=== PATIENT | male | born 1950 | race Caucasian/White ===

== ENCOUNTER 2020-09-22 10:21 | Inpatient (IN) | payer OTHER, SELFPAY ==
[~2020-09-22] VITALS: Ht 172.7 cm; Wt 93.0 kg
[2020-09-22 10:49] VITALS: BP_SYST 161
[2020-09-22] MEDS ORDERED: IPRATROPIUM BROM 0.5 MG/2.5 ML VIAL.NEB (ATROVENT) INH ONE (11:15)
[2020-09-22] MEDS ORDERED: LevALBUTEROL HCL 1.25 MG/0.5 ML *CONC.* VIAL.NEB (XOPENEX CONC.) INH ONE (11:15)
[2020-09-22 13:07] LABS: BASOPHILS % (AUTO) 0.4 % (0.0-2.0); EOSINOPHILS % (AUTO) 0.1 % (0.0-4.0); HEMATOCRIT 32.2 % (36-54); HEMOGLOBIN 10.3 g/dL (14.0-18.0); LYMPHOCYTES # (AUTO) 1.2 K/uL (1.0-5.5); LYMPHOCYTES % (AUTO) 16.8 % (20.5-51.5); MEAN CORPUSCULAR HEMOGLOBIN 24 pg (27-31); MEAN CORPUSCULAR HGB CONC 32 % (32-36); MEAN CORPUSCULAR VOLUME 74 fL (79.0-98.0); MONOCYTES # (AUTO) 0.7 K/uL (0.0-1.0); MONOCYTES % (AUTO) 10.1 % (1.7-9.3); NEUTROPHILS # (AUTO) 5.4 K/uL (1.8-7.7); NEUTROPHILS % (AUTO) 72.6 % (40.0-70.0); PLATELET COUNT (AUTO) 293 K/uL (130-430); RED BLOOD CELL COUNT(AUTO) 4.34 MIL/uL (4.2-6.2); RED CELL DISTRIBUTION WIDTH 17.7 % (9.0-15.0); WHITE BLOOD COUNT (AUTO) 7.4 K/uL (4.8-10.8)
[2020-09-22 13:12] LABS: ANION GAP 9 (5-15); CALCIUM 8.9 mg/dL (8.4-11.0); CHLORIDE 97 mmol/L (98-107); CREATININE 1.51 mg/dL (0.55-1.30); GLUCOSE 360 mg/dL (70-99); POTASSIUM 4.4 mmol/L (3.5-5.1); SODIUM SERUM 132 mmol/L (136-145); UREA NITROGEN, BLOOD 25 mg/dL (8-21)
[2020-09-22 13:23] LABS: ALANINE AMINOTRANSFERASE 439 U/L (12-78); LACTATE DEHYDROGENASE 662 U/L (85-227); TOTAL BILIRUBIN 0.7 mg/dL (0.0-1.0)
[2020-09-22 13:25] LABS: FIBRINOGEN 726 mg/dL (200-400)
[2020-09-22] MEDS ORDERED: AZITHROMYCIN 500 MG in NS 250 ML IV ONE (13:45)
[2020-09-22] MEDS ORDERED: ASPIRIN 81 MG TABLET(ECOTRIN) PO ONE (13:45)
[2020-09-22 14:04] LABS: C-REACTIVE PROTEIN QUANT 26.3 mg/dL (0-0.5)
[2020-09-22] MEDS ORDERED: LIP80 PO (14:18)
[2020-09-22] MEDS ORDERED: LOSA50TA3 PO (14:18)
[2020-09-22] MEDS ORDERED: METF1000 PO (14:18)
[2020-09-22] MEDS ORDERED: NOR10 PO (14:18)
[2020-09-22] MEDS ORDERED: CARV6.2554 PO (14:18)
[2020-09-22] MEDS ORDERED: ASPI-1393 PO (14:18)
[2020-09-22] MEDS ORDERED: GLIM4TAB PO (14:18)
[2020-09-22] MEDS ORDERED: CLOP75TA32 PO (14:18)
[2020-09-22 14:22] LABS: ASPARTATE AMINOTRANSFERASE 679 U/L (10-37)
[2020-09-22] MEDS ORDERED: INSULIN REGULAR, HUMAN 10 UNITS/0.1 ML INJ ONE (14:47)
[2020-09-22] MEDS ORDERED: DEXTROSE 50% JECT 50 ML DISP.SYRIN IVP PRN (15:00)
[2020-09-22] MEDS ORDERED: *HEPARIN PER PHARMACY XX ONE (15:00)
[2020-09-22] MEDS ORDERED: INSULIN REGULAR, HUMAN 100 UNITS/ML, 10 ML VIAL IVP ONE (15:00)
[2020-09-22] MEDS ORDERED: IPRATROPIUM BROM 0.5 MG/2.5 ML VIAL.NEB (ATROVENT) INH PRN (15:00)
[2020-09-22 15:13] VITALS: BP_SYST 167
[2020-09-22] MEDS ORDERED: HEPARIN SODIUM,PORCINE 3000 UNITS/0.6 ML BOLUS IVP PRN (15:30)
[2020-09-22] MEDS ORDERED: HEPARIN SODIUM,PORCINE 2000 UNITS/0.4 ML BOLUS IVP PRN (15:30)
[2020-09-22] MEDS ORDERED: HEPARIN SODIUM,PORCINE 5,000 UNITS/ML VIAL IVP ONE (15:30)
[2020-09-22] MEDS ORDERED: ALBUTEROL MDI INHALATION 8 GM INH INH PRN (15:30)
[2020-09-22 16:07] VITALS: BP_SYST 144
[2020-09-22] MEDS: DEXAMETHASONE SOD PHOSPHATE 10 MG/ML VIAL IVP SCH (17:14)
[2020-09-22] MEDS: cefTRIAXone 1 GM in D5W 50 ML IV SCH (17:14)
[2020-09-22] MEDS: INSULIN REGULAR, HUMAN 100 UNITS/ML, 10 ML VIAL (humuLIN R) SUBCUT PRN (18:52)
[2020-09-22] MEDS: HEPARIN 25,000 UNITS in 250 ML PREMIX IV PRN (19:50)
[2020-09-22] MEDS: CARVEDILOL 6.25 MG TABLET (COREG) PO SCH (21:50)
[2020-09-23] VITALS: BP_SYST 147
[2020-09-23] MEDS: INSULIN REGULAR, HUMAN 100 UNITS/ML, 10 ML VIAL (humuLIN R) SUBCUT PRN ×5 (00:20→23:32)
[2020-09-23 01:04] LABS: BILIRUBIN,URINE NEGATIVE (NEGATIVE); BLOOD, URINE 3+ (NEGATIVE); CLARITY/URINE CLEAR (CLEAR); COLOR,URINE YELLOW (YELLOW); GLUCOSE,URINE 2+ (NEGATIVE); KETONES,URINE NEGATIVE (NEGATIVE); LEUKOCYTE ESTERASE ,URINE NEGATIVE (NEGATIVE); NITRITE, URINE NEGATIVE (NEGATIVE); PH,URINE 5.5 (5.0-8.0); PROTEIN URINE 3+ (NEGATIVE)
[2020-09-23 01:18] LABS: BACTERIA,URINE MANY /HPF (None Seen); RBC,URINE 20-50 /HPF (0-3); YEAST,URINE Moderate /HPF (None Seen)
[2020-09-23 08:50] VITALS: BP_SYST 146
[2020-09-23] MEDS ORDERED: ATORVASTATIN 20 MG TABLET PO SCH (09:00)
[2020-09-23] MEDS ORDERED: CLOPIDOGREL BISULFATE 75 MG TABLET PO SCH (09:00)
[2020-09-23 09:49] LABS: BASOPHILS % (AUTO) 0.2 % (0.0-2.0); HEMOGLOBIN 10.1 g/dL (14.0-18.0); LYMPHOCYTES # (AUTO) 0.9 K/uL (1.0-5.5); LYMPHOCYTES % (AUTO) 11.9 % (20.5-51.5); MEAN CORPUSCULAR HEMOGLOBIN 24 pg (27-31); MEAN CORPUSCULAR HGB CONC 32 % (32-36); MEAN CORPUSCULAR VOLUME 75 fL (79.0-98.0); MONOCYTES # (AUTO) 0.5 K/uL (0.0-1.0); MONOCYTES % (AUTO) 7.5 % (1.7-9.3); NEUTROPHILS # (AUTO) 5.8 K/uL (1.8-7.7); NEUTROPHILS % (AUTO) 80.4 % (40.0-70.0); PLATELET COUNT (AUTO) 259 K/uL (130-430); RED BLOOD CELL COUNT(AUTO) 4.28 MIL/uL (4.2-6.2); RED CELL DISTRIBUTION WIDTH 17.9 % (9.0-15.0); WHITE BLOOD COUNT (AUTO) 7.2 K/uL (4.8-10.8)
[2020-09-23 09:53] LABS: ALANINE AMINOTRANSFERASE 336 U/L (12-78); ALBUMIN 2.7 g/dL (3.4-4.8); ANION GAP 14 (5-15); CALCIUM 8.8 mg/dL (8.4-11.0); CHLORIDE 101 mmol/L (98-107); CREATININE 1.55 mg/dL (0.55-1.30); GLUCOSE 315 mg/dL (70-99); POTASSIUM 4.3 mmol/L (3.5-5.1); SODIUM SERUM 138 mmol/L (136-145); TOTAL BILIRUBIN 0.7 mg/dL (0.0-1.0); UREA NITROGEN, BLOOD 27 mg/dL (8-21)
[2020-09-23 10:19] LABS: ASPARTATE AMINOTRANSFERASE 246 U/L (10-37)
[2020-09-23] MEDS: AZITHROMYCIN 500 MG in NS 250 ML IV SCH (10:51)
[2020-09-23] MEDS: CARVEDILOL 6.25 MG TABLET (COREG) PO SCH ×2 (10:51→23:20)
[2020-09-23] MEDS: amLODIPine BESYLATE 10 MG TABLET PO SCH (10:52)
[2020-09-23] MEDS: ASPIRIN 81 MG TABLET(ECOTRIN) PO SCH (10:52)
[2020-09-23] MEDS: HEPARIN 25,000 UNITS in 250 ML PREMIX IV PRN ×2 (10:55→18:59)
[2020-09-23] MEDS: ALBUTEROL MDI INHALATION 8 GM INH INH SCH ×2 (12:30→18:55)
[2020-09-23] MEDS: IPRATROPIUM BROM 0.5 MG/2.5 ML VIAL.NEB (ATROVENT) INH SCH (12:44)
[2020-09-23] MEDS: cefTRIAXone 1 GM in D5W 50 ML IV SCH (15:44)
[2020-09-23] MEDS: DEXAMETHASONE SOD PHOSPHATE 10 MG/ML VIAL IVP SCH (15:44)
[2020-09-23 23:02] VITALS: BP_SYST 161
[2020-09-24] VITALS (7 sets, daily range): BP systolic 136–167
[2020-09-24] MEDS: INSULIN REGULAR, HUMAN 100 UNITS/ML, 10 ML VIAL (humuLIN R) SUBCUT PRN ×4 (06:08→23:40)
[2020-09-24] MEDS: IPRATROPIUM BROM 0.5 MG/2.5 ML VIAL.NEB (ATROVENT) INH SCH ×3 (07:00→19:25)
[2020-09-24 07:06] LABS: BASOPHILS % (AUTO) 0.3 % (0.0-2.0); HEMATOCRIT 30.8 % (36-54); HEMOGLOBIN 9.7 g/dL (14.0-18.0); LYMPHOCYTES # (AUTO) 0.7 K/uL (1.0-5.5); MEAN CORPUSCULAR HEMOGLOBIN 23 pg (27-31); MEAN CORPUSCULAR HGB CONC 31 % (32-36); MEAN CORPUSCULAR VOLUME 75 fL (79.0-98.0); MONOCYTES # (AUTO) 0.6 K/uL (0.0-1.0); MONOCYTES % (AUTO) 7.9 % (1.7-9.3); NEUTROPHILS # (AUTO) 6.1 K/uL (1.8-7.7); NEUTROPHILS % (AUTO) 81.8 % (40.0-70.0); PLATELET COUNT (AUTO) 236 K/uL (130-430); RED BLOOD CELL COUNT(AUTO) 4.13 MIL/uL (4.2-6.2); RED CELL DISTRIBUTION WIDTH 17.9 % (9.0-15.0); WHITE BLOOD COUNT (AUTO) 7.5 K/uL (4.8-10.8)
[2020-09-24] MEDS: ALBUTEROL MDI INHALATION 8 GM INH INH SCH ×3 (07:34→20:28)
[2020-09-24 08:00] LABS: ALANINE AMINOTRANSFERASE 335 U/L (12-78); ALBUMIN 2.6 g/dL (3.4-4.8); ANION GAP 8 (5-15); ASPARTATE AMINOTRANSFERASE 192 U/L (10-37); CALCIUM 8.5 mg/dL (8.4-11.0); CHLORIDE 100 mmol/L (98-107); GLUCOSE 344 mg/dL (70-99); POTASSIUM 3.9 mmol/L (3.5-5.1); SODIUM SERUM 136 mmol/L (136-145); TOTAL BILIRUBIN 0.5 mg/dL (0.0-1.0); UREA NITROGEN, BLOOD 30 mg/dL (8-21)
[2020-09-24] MEDS: CARVEDILOL 6.25 MG TABLET (COREG) PO SCH ×2 (09:12→22:00)
[2020-09-24] MEDS: ASPIRIN 81 MG TABLET(ECOTRIN) PO SCH (09:12)
[2020-09-24] MEDS: amLODIPine BESYLATE 10 MG TABLET PO SCH (09:13)
[2020-09-24] MEDS: AZITHROMYCIN 500 MG in NS 250 ML IV SCH (09:13)
[2020-09-24 10:23] LABS: CHOLESTEROL 110 mg/dL (<200); HDL CHOLESTEROL 32 mg/dL (>45); LDL CHOLESTEROL 64 mg/dL (<100); TRIGLYCERIDES 80 mg/dL (30-150)
[2020-09-24] MEDS ORDERED: cloNIDine HCL 0.1 MG TABLET PO PRN (12:00)
[2020-09-24] MEDS ORDERED: cloNIDine HCL 0.1 MG TABLET ONE (12:11)
[2020-09-24] MEDS ORDERED: *LOVENOX 1MG/KG Q12H/PHARMACY XX PRN (12:30)
[2020-09-24] MEDS ORDERED: ENOXAPARIN SODIUM 100 MG/ML SYRINGE SUBCUT ONE (13:45)
[2020-09-24] MEDS: cefTRIAXone 1 GM in D5W 50 ML IV SCH (14:32)
[2020-09-24] MEDS: DEXAMETHASONE SOD PHOSPHATE 10 MG/ML VIAL IVP SCH (14:35)
[2020-09-24] MEDS: ENOXAPARIN SODIUM 100 MG/ML SYRINGE SUBCUT SCH (22:00)
[2020-09-25] MEDS: ALBUTEROL MDI INHALATION 8 GM INH INH SCH ×3 (00:41→19:34)
[2020-09-25] MEDS: INSULIN REGULAR, HUMAN 100 UNITS/ML, 10 ML VIAL (humuLIN R) SUBCUT PRN ×4 (05:40→23:28)
[2020-09-25 07:22] LABS: BASOPHILS % (AUTO) 0.4 % (0.0-2.0); HEMATOCRIT 30.7 % (36-54); HEMOGLOBIN 9.9 g/dL (14.0-18.0); LYMPHOCYTES # (AUTO) 0.8 K/uL (1.0-5.5); LYMPHOCYTES % (AUTO) 10.9 % (20.5-51.5); MEAN CORPUSCULAR HEMOGLOBIN 24 pg (27-31); MEAN CORPUSCULAR HGB CONC 32 % (32-36); MEAN CORPUSCULAR VOLUME 74 fL (79.0-98.0); MONOCYTES # (AUTO) 0.5 K/uL (0.0-1.0); MONOCYTES % (AUTO) 7.4 % (1.7-9.3); NEUTROPHILS # (AUTO) 5.7 K/uL (1.8-7.7); NEUTROPHILS % (AUTO) 81.3 % (40.0-70.0); PLATELET COUNT (AUTO) 241 K/uL (130-430); RED BLOOD CELL COUNT(AUTO) 4.16 MIL/uL (4.2-6.2); RED CELL DISTRIBUTION WIDTH 17.8 % (9.0-15.0)
[2020-09-25 08:00] VITALS: BP_SYST 136
[2020-09-25 09:00] LABS: ALANINE AMINOTRANSFERASE 290 U/L (12-78); ALBUMIN 2.5 g/dL (3.4-4.8); ANION GAP 6 (5-15); ASPARTATE AMINOTRANSFERASE 126 U/L (10-37); C-REACTIVE PROTEIN QUANT 6.4 mg/dL (0-0.5); CALCIUM 8.4 mg/dL (8.4-11.0); CHLORIDE 99 mmol/L (98-107); CREATININE 1.19 mg/dL (0.55-1.30); GLUCOSE 233 mg/dL (70-99); POTASSIUM 4.2 mmol/L (3.5-5.1); SODIUM SERUM 134 mmol/L (136-145); TOTAL BILIRUBIN 0.3 mg/dL (0.0-1.0); UREA NITROGEN, BLOOD 24 mg/dL (8-21)
[2020-09-25] MEDS: amLODIPine BESYLATE 10 MG TABLET PO SCH (09:26)
[2020-09-25] MEDS: ASPIRIN 81 MG TABLET(ECOTRIN) PO SCH (09:26)
[2020-09-25] MEDS: AZITHROMYCIN 500 MG in NS 250 ML IV SCH (09:26)
[2020-09-25] MEDS: ENOXAPARIN SODIUM 100 MG/ML SYRINGE SUBCUT SCH ×2 (09:26→21:00)
[2020-09-25] MEDS: CARVEDILOL 6.25 MG TABLET (COREG) PO SCH ×2 (09:26→21:00)
[2020-09-25 11:50] VITALS: BP_SYST 141
[2020-09-25 12:00] VITALS: BP_SYST 147
[2020-09-25 12:06] VITALS: BP_SYST 147
[2020-09-25] MEDS: DEXAMETHASONE SOD PHOSPHATE 10 MG/ML VIAL IVP SCH (15:32)
[2020-09-25] MEDS: cefTRIAXone 1 GM in D5W 50 ML IV SCH (15:32)
[2020-09-25 16:27] VITALS: BP_SYST 130
[2020-09-25 20:05] VITALS: BP_SYST 134
[2020-09-26 00:01] VITALS: BP_SYST 144
[2020-09-26] MEDS: ALBUTEROL MDI INHALATION 8 GM INH INH SCH ×4 (01:23→19:00)
[2020-09-26] MEDS: INSULIN REGULAR, HUMAN 100 UNITS/ML, 10 ML VIAL (humuLIN R) SUBCUT PRN ×3 (05:48→18:00)
[2020-09-26 07:51] LABS: ALANINE AMINOTRANSFERASE 217 U/L (12-78); ALBUMIN 2.6 g/dL (3.4-4.8); ANION GAP 6 (5-15); ASPARTATE AMINOTRANSFERASE 71 U/L (10-37); CALCIUM 8.8 mg/dL (8.4-11.0); CHLORIDE 100 mmol/L (98-107); CREATININE 1.05 mg/dL (0.55-1.30); GLUCOSE 254 mg/dL (70-99); POTASSIUM 4.3 mmol/L (3.5-5.1); SODIUM SERUM 136 mmol/L (136-145); TOTAL BILIRUBIN 0.4 mg/dL (0.0-1.0); UREA NITROGEN, BLOOD 24 mg/dL (8-21)
[2020-09-26 07:53] LABS: BASOPHILS % (AUTO) 0.2 % (0.0-2.0); HEMATOCRIT 31.5 % (36-54); HEMOGLOBIN 9.9 g/dL (14.0-18.0); LYMPHOCYTES # (AUTO) 0.8 K/uL (1.0-5.5); MEAN CORPUSCULAR HEMOGLOBIN 23 pg (27-31); MEAN CORPUSCULAR HGB CONC 32 % (32-36); MEAN CORPUSCULAR VOLUME 74 fL (79.0-98.0); MONOCYTES # (AUTO) 0.4 K/uL (0.0-1.0); NEUTROPHILS % (AUTO) 80.8 % (40.0-70.0); PLATELET COUNT (AUTO) 222 K/uL (130-430); RED BLOOD CELL COUNT(AUTO) 4.25 MIL/uL (4.2-6.2); RED CELL DISTRIBUTION WIDTH 17.5 % (9.0-15.0); WHITE BLOOD COUNT (AUTO) 6.1 K/uL (4.8-10.8)
[2020-09-26] MEDS: AZITHROMYCIN 500 MG in NS 250 ML IV SCH (09:00)
[2020-09-26] MEDS: ENOXAPARIN SODIUM 100 MG/ML SYRINGE SUBCUT SCH ×2 (09:00→22:27)
[2020-09-26] MEDS: amLODIPine BESYLATE 10 MG TABLET PO SCH (09:00)
[2020-09-26] MEDS: CARVEDILOL 6.25 MG TABLET (COREG) PO SCH ×2 (09:00→22:27)
[2020-09-26] MEDS: ASPIRIN 81 MG TABLET(ECOTRIN) PO SCH (09:00)
[2020-09-26 09:20] VITALS: BP_SYST 147
[2020-09-26 12:55] VITALS: BP_SYST 128
[2020-09-26] MEDS: DEXAMETHASONE SOD PHOSPHATE 10 MG/ML VIAL IVP SCH (14:30)
[2020-09-26] MEDS: cefTRIAXone 1 GM in D5W 50 ML IV SCH (14:30)
[2020-09-26 16:53] VITALS: BP_SYST 144
[2020-09-26] MEDS: IPRATROPIUM BROM 0.5 MG/2.5 ML VIAL.NEB (ATROVENT) INH SCH (19:00)
[2020-09-26 20:18] VITALS: BP_SYST 145
[2020-09-27] VITALS (20 sets, daily range): BP systolic 87–158
[2020-09-27] MEDS: INSULIN REGULAR, HUMAN 100 UNITS/ML, 10 ML VIAL (humuLIN R) SUBCUT PRN ×2 (00:01→06:28)
[2020-09-27] MEDS: IPRATROPIUM BROM 0.5 MG/2.5 ML VIAL.NEB (ATROVENT) INH SCH (01:00)
[2020-09-27] MEDS: ALBUTEROL MDI INHALATION 8 GM INH INH SCH ×3 (02:01→13:50)
[2020-09-27] MEDS ORDERED: DIPHENHYDRAMINE INJ 50 MG/ML VIAL IVP ONE (07:00)
[2020-09-27] MEDS ORDERED: HALOPERIDOL LACTATE 5 MG/ML VIAL IM ONE (08:00)
[2020-09-27] MEDS: amLODIPine BESYLATE 10 MG TABLET PO SCH (09:00)
[2020-09-27] MEDS: DEXAMETHASONE SOD PHOSPHATE 10 MG/ML VIAL IVP SCH (16:16)
[2020-09-27] MEDS: cefTRIAXone 1 GM in D5W 50 ML IV SCH (16:18)
[2020-09-27] MEDS ORDERED: ETOMIDATE 20 MG/ 10 ML VIAL (AMIDATE) IVP ONE (16:22)
[2020-09-27] MEDS ORDERED: ROCURONIUM BROMIDE 10 MG/ML (ZEMURON) IV ONE (16:22)
[2020-09-27] MEDS ORDERED: NALOXONE HCL 0.4 MG/ML AMP (NARCAN) IVP PRN (17:30)
[2020-09-27] MEDS ORDERED: MORPHINE I.V. DRIP 100 ML IV ONE (20:22)
[2020-09-27] MEDS: PROPOFOL DRIP 100 ML IV PRN (22:29)
[2020-09-28] VITALS (29 sets, daily range): BP systolic 98–161
[2020-09-28] MEDS: ALBUTEROL MDI INHALATION 8 GM INH INH SCH ×3 (00:10→14:20)
[2020-09-28] MEDS: INSULIN REGULAR, HUMAN 100 UNITS/ML, 10 ML VIAL (humuLIN R) SUBCUT PRN ×4 (07:06→23:51)
[2020-09-28 07:56] LABS: BASOPHILS % (AUTO) 0.1 % (0.0-2.0); HEMATOCRIT 31.6 % (36-54); HEMOGLOBIN 9.9 g/dL (14.0-18.0); LYMPHOCYTES # (AUTO) 0.7 K/uL (1.0-5.5); LYMPHOCYTES % (AUTO) 9.6 % (20.5-51.5); MEAN CORPUSCULAR HEMOGLOBIN 24 pg (27-31); MEAN CORPUSCULAR HGB CONC 31 % (32-36); MEAN CORPUSCULAR VOLUME 75 fL (79.0-98.0); MONOCYTES # (AUTO) 0.4 K/uL (0.0-1.0); MONOCYTES % (AUTO) 5.1 % (1.7-9.3); NEUTROPHILS # (AUTO) 5.8 K/uL (1.8-7.7); NEUTROPHILS % (AUTO) 85.2 % (40.0-70.0); PLATELET COUNT (AUTO) 144 K/uL (130-430); RED BLOOD CELL COUNT(AUTO) 4.21 MIL/uL (4.2-6.2); RED CELL DISTRIBUTION WIDTH 18.1 % (9.0-15.0); WHITE BLOOD COUNT (AUTO) 6.8 K/uL (4.8-10.8)
[2020-09-28 08:24] LABS: ALANINE AMINOTRANSFERASE 290 U/L (12-78); ALBUMIN 2.1 g/dL (3.4-4.8); ASPARTATE AMINOTRANSFERASE 229 U/L (10-37); CALCIUM 8.2 mg/dL (8.4-11.0); CHLORIDE 100 mmol/L (98-107); CREATININE 1.82 mg/dL (0.55-1.30); GLUCOSE 349 mg/dL (70-99); POTASSIUM 5.4 mmol/L (3.5-5.1); SODIUM SERUM 137 mmol/L (136-145); TOTAL BILIRUBIN 0.4 mg/dL (0.0-1.0); UREA NITROGEN, BLOOD 50 mg/dL (8-21)
[2020-09-28 08:37] LABS: ANION GAP 13 (5-15)
[2020-09-28] MEDS: PROPOFOL DRIP 100 ML IV PRN ×2 (09:31→22:40)
[2020-09-28] MEDS: cefTRIAXone 1 GM in D5W 50 ML IV SCH (16:44)
[2020-09-28] MEDS: DEXAMETHASONE SOD PHOSPHATE 10 MG/ML VIAL IVP SCH (16:47)
[2020-09-28] MEDS: CARVEDILOL 6.25 MG TABLET (COREG) PO SCH (21:00)
[2020-09-28] MEDS: FAMOTIDINE PF 20 MG/2 ML VIAL IVP SCH (22:14)
[2020-09-28] MEDS ORDERED: FAMOTIDINE PF 20 MG/2 ML VIAL ONE (22:14)
[2020-09-29] VITALS (27 sets, daily range): BP systolic 106–168
[2020-09-29] MEDS: PROPOFOL DRIP 100 ML IV PRN ×3 (04:53→16:15)
[2020-09-29] MEDS: ALBUTEROL MDI INHALATION 8 GM INH INH SCH ×4 (04:54→19:00)
[2020-09-29] MEDS: INSULIN REGULAR, HUMAN 100 UNITS/ML, 10 ML VIAL (humuLIN R) SUBCUT PRN ×3 (05:36→18:47)
[2020-09-29 06:51] LABS: BASOPHILS % (AUTO) 0.1 % (0.0-2.0); EOSINOPHILS % (AUTO) 0.1 % (0.0-4.0); HEMATOCRIT 33.9 % (36-54); HEMOGLOBIN 10.7 g/dL (14.0-18.0); LYMPHOCYTES # (AUTO) 0.6 K/uL (1.0-5.5); LYMPHOCYTES % (AUTO) 7.1 % (20.5-51.5); MEAN CORPUSCULAR HEMOGLOBIN 23 pg (27-31); MEAN CORPUSCULAR HGB CONC 32 % (32-36); MEAN CORPUSCULAR VOLUME 74 fL (79.0-98.0); MONOCYTES # (AUTO) 0.5 K/uL (0.0-1.0); MONOCYTES % (AUTO) 5.9 % (1.7-9.3); NEUTROPHILS # (AUTO) 7.1 K/uL (1.8-7.7); NEUTROPHILS % (AUTO) 86.8 % (40.0-70.0); PLATELET COUNT (AUTO) 168 K/uL (130-430); RED BLOOD CELL COUNT(AUTO) 4.58 MIL/uL (4.2-6.2); RED CELL DISTRIBUTION WIDTH 18.5 % (9.0-15.0); WHITE BLOOD COUNT (AUTO) 8.2 K/uL (4.8-10.8)
[2020-09-29 07:39] LABS: ALANINE AMINOTRANSFERASE 329 U/L (12-78); ALBUMIN 2.3 g/dL (3.4-4.8); ANION GAP 9 (5-15); ASPARTATE AMINOTRANSFERASE 181 U/L (10-37); CALCIUM 8.6 mg/dL (8.4-11.0); CHLORIDE 103 mmol/L (98-107); CREATININE 1.65 mg/dL (0.55-1.30); GLUCOSE 261 mg/dL (70-99); SODIUM SERUM 140 mmol/L (136-145); TOTAL BILIRUBIN 0.4 mg/dL (0.0-1.0); UREA NITROGEN, BLOOD 61 mg/dL (8-21)
[2020-09-29] MEDS: amLODIPine BESYLATE 10 MG TABLET PO SCH (09:00)
[2020-09-29] MEDS: CARVEDILOL 6.25 MG TABLET (COREG) PO SCH ×2 (09:00→20:46)
[2020-09-29] MEDS: ASPIRIN 81 MG TABLET(ECOTRIN) PO SCH ×2 (09:00→11:00)
[2020-09-29] MEDS: FAMOTIDINE PF 20 MG/2 ML VIAL IVP SCH ×2 (13:24→20:46)
[2020-09-29] MEDS: DEXAMETHASONE SOD PHOSPHATE 10 MG/ML VIAL IVP SCH (16:16)
[2020-09-29] MEDS ORDERED: FAMOTIDINE PF 20 MG/2 ML VIAL ONE (20:24)
[2020-09-30] VITALS (31 sets, daily range): BP systolic 89–140
[2020-09-30] MEDS: INSULIN REGULAR, HUMAN 100 UNITS/ML, 10 ML VIAL (humuLIN R) SUBCUT PRN ×5 (00:57→23:57)
[2020-09-30] MEDS: PROPOFOL DRIP 100 ML IV PRN ×2 (00:59→20:57)
[2020-09-30] MEDS: MORPHINE I.V. DRIP 100 ML IV PRN (01:00)
[2020-09-30] MEDS: ALBUTEROL MDI INHALATION 8 GM INH INH SCH ×4 (04:30→21:51)
[2020-09-30] MEDS ORDERED: INSULIN REGULAR, HUMAN 100 UNITS/ML, 10 ML VIAL SUBCUT ONE (07:00)
[2020-09-30 07:36] LABS: BASOPHILS % (AUTO) 0.2 % (0.0-2.0); HEMOGLOBIN 10.7 g/dL (14.0-18.0); LYMPHOCYTES # (AUTO) 0.6 K/uL (1.0-5.5); LYMPHOCYTES % (AUTO) 7.7 % (20.5-51.5); MEAN CORPUSCULAR HEMOGLOBIN 23 pg (27-31); MEAN CORPUSCULAR HGB CONC 31 % (32-36); MEAN CORPUSCULAR VOLUME 76 fL (79.0-98.0); MONOCYTES # (AUTO) 0.5 K/uL (0.0-1.0); NEUTROPHILS # (AUTO) 6.2 K/uL (1.8-7.7); PLATELET COUNT (AUTO) 137 K/uL (130-430); RED CELL DISTRIBUTION WIDTH 18.9 % (9.0-15.0); WHITE BLOOD COUNT (AUTO) 7.3 K/uL (4.8-10.8)
[2020-09-30 08:07] LABS: NEUTROPHILS % (AUTO) 85.1 % (40.0-70.0)
[2020-09-30 08:44] LABS: ALANINE AMINOTRANSFERASE 328 U/L (12-78); ALBUMIN 2.2 g/dL (3.4-4.8); ANION GAP 4 (5-15); ASPARTATE AMINOTRANSFERASE 145 U/L (10-37); CHLORIDE 104 mmol/L (98-107); CREATININE 2.06 mg/dL (0.55-1.30); SODIUM SERUM 136 mmol/L (136-145); TOTAL BILIRUBIN 0.4 mg/dL (0.0-1.0); UREA NITROGEN, BLOOD 78 mg/dL (8-21)
[2020-09-30 08:54] LABS: GLUCOSE 450 mg/dL (70-99)
[2020-09-30] MEDS: amLODIPine BESYLATE 10 MG TABLET PO SCH (09:23)
[2020-09-30] MEDS: CARVEDILOL 6.25 MG TABLET (COREG) PO SCH ×2 (09:23→22:00)
[2020-09-30] MEDS: ASPIRIN 81 MG TABLET(ECOTRIN) PO SCH (09:23)
[2020-09-30] MEDS: FAMOTIDINE PF 20 MG/2 ML VIAL IVP SCH ×2 (10:23→21:59)
[2020-09-30] MEDS ORDERED: SODIUM POLYSTYRENE SULFONATE 15 GM/60 ML UDBTL PO ONE (11:15)
[2020-09-30] MEDS: DEXAMETHASONE SOD PHOSPHATE 10 MG/ML VIAL IVP SCH (16:14)
[2020-09-30] MEDS ORDERED: CARVEDILOL 3.125 MG TABLET (COREG) ONE (21:56)
[2020-09-30] MEDS ORDERED: FAMOTIDINE PF 20 MG/2 ML VIAL ONE (21:59)
[2020-10-01] VITALS (29 sets, daily range): BP systolic 113–143
[2020-10-01] MEDS ORDERED: INSULIN REGULAR, HUMAN 100 UNITS/ML, 10 ML VIAL SUBCUT ONE ×2 (00:15→06:00)
[2020-10-01] MEDS: ALBUTEROL MDI INHALATION 8 GM INH INH SCH ×4 (01:21→20:41)
[2020-10-01] MEDS: INSULIN REGULAR, HUMAN 100 UNITS/ML, 10 ML VIAL (humuLIN R) SUBCUT PRN ×3 (05:47→18:13)
[2020-10-01] MEDS: PROPOFOL DRIP 100 ML IV PRN ×2 (06:32→16:02)
[2020-10-01 07:26] LABS: BASOPHILS % (AUTO) 0.1 % (0.0-2.0); HEMATOCRIT 33.2 % (36-54); LYMPHOCYTES # (AUTO) 0.5 K/uL (1.0-5.5); LYMPHOCYTES % (AUTO) 7.9 % (20.5-51.5); MEAN CORPUSCULAR HEMOGLOBIN 23 pg (27-31); MEAN CORPUSCULAR HGB CONC 30 % (32-36); MEAN CORPUSCULAR VOLUME 77 fL (79.0-98.0); MONOCYTES # (AUTO) 0.7 K/uL (0.0-1.0); MONOCYTES % (AUTO) 9.4 % (1.7-9.3); NEUTROPHILS # (AUTO) 5.7 K/uL (1.8-7.7); NEUTROPHILS % (AUTO) 82.6 % (40.0-70.0); PLATELET COUNT (AUTO) 119 K/uL (130-430); RED BLOOD CELL COUNT(AUTO) 4.31 MIL/uL (4.2-6.2); RED CELL DISTRIBUTION WIDTH 18.9 % (9.0-15.0)
[2020-10-01 07:43] LABS: POTASSIUM 5.3 mmol/L (3.5-5.1); SODIUM SERUM 150 mmol/L (136-145)
[2020-10-01 07:44] LABS: ALANINE AMINOTRANSFERASE 223 U/L (12-78); ALBUMIN 1.9 g/dL (3.4-4.8); ANION GAP 4 (5-15); CALCIUM 8.6 mg/dL (8.4-11.0); CHLORIDE 111 mmol/L (98-107); CREATININE 1.79 mg/dL (0.55-1.30); TOTAL BILIRUBIN 0.4 mg/dL (0.0-1.0); UREA NITROGEN, BLOOD 78 mg/dL (8-21)
[2020-10-01 08:24] LABS: GLUCOSE 478 mg/dL (70-99)
[2020-10-01 08:25] LABS: ASPARTATE AMINOTRANSFERASE 66 U/L (10-37)
[2020-10-01] MEDS: amLODIPine BESYLATE 10 MG TABLET PO SCH (09:00)
[2020-10-01] MEDS: CARVEDILOL 6.25 MG TABLET (COREG) PO SCH ×2 (09:00→21:00)
[2020-10-01] MEDS: FAMOTIDINE PF 20 MG/2 ML VIAL IVP SCH ×2 (09:04→21:00)
[2020-10-01] MEDS: INSULIN GLARGINE 100 UNITS/ML 10 ML VIAL SUBCUT SCH (09:10)
[2020-10-01] MEDS: ASPIRIN 81 MG TABLET(ECOTRIN) PO SCH (09:12)
[2020-10-01] MEDS: MORPHINE I.V. DRIP 100 ML IV PRN (11:49)
[2020-10-01] MEDS: DEXAMETHASONE SOD PHOSPHATE 10 MG/ML VIAL IVP SCH (15:35)
[2020-10-02] VITALS (28 sets, daily range): BP systolic 103–152
[2020-10-02] MEDS: INSULIN REGULAR, HUMAN 100 UNITS/ML, 10 ML VIAL (humuLIN R) SUBCUT PRN ×4 (00:40→17:34)
[2020-10-02] MEDS: ALBUTEROL MDI INHALATION 8 GM INH INH SCH (00:56)
[2020-10-02] MEDS: ASPIRIN 81 MG TABLET(ECOTRIN) PO SCH (09:03)
[2020-10-02] MEDS: CARVEDILOL 6.25 MG TABLET (COREG) PO SCH ×2 (09:03→23:30)
[2020-10-02] MEDS: amLODIPine BESYLATE 10 MG TABLET PO SCH (09:03)
[2020-10-02] MEDS: FAMOTIDINE PF 20 MG/2 ML VIAL IVP SCH ×2 (09:03→23:30)
[2020-10-02] MEDS: INSULIN GLARGINE 100 UNITS/ML 10 ML VIAL SUBCUT SCH ×2 (09:04→23:30)
[2020-10-02 11:36] LABS: ANION GAP 1 (5-15); CALCIUM 8.9 mg/dL (8.4-11.0); CREATININE 1.79 mg/dL (0.55-1.30); SODIUM SERUM 159 mmol/L (136-145); UREA NITROGEN, BLOOD 80 mg/dL (8-21)
[2020-10-02 11:56] LABS: POTASSIUM 5.9 mmol/L (3.5-5.1)
[2020-10-02 11:57] LABS: ALANINE AMINOTRANSFERASE 157 U/L (12-78); ASPARTATE AMINOTRANSFERASE 40 U/L (10-37); CHLORIDE 120 mmol/L (98-107); GLUCOSE 460 mg/dL (70-99); TOTAL BILIRUBIN 0.4 mg/dL (0.0-1.0)
[2020-10-02] MEDS ORDERED: MIDAZOLAM HCL IN 0.9 % NACL/PF 50 ML IV ONE (12:18)
[2020-10-02] MEDS: DEXAMETHASONE SOD PHOSPHATE 10 MG/ML VIAL IVP SCH (15:26)
[2020-10-03] VITALS (29 sets, daily range): BP systolic 80–142
[2020-10-03] MEDS: ALBUTEROL MDI INHALATION 8 GM INH INH SCH ×4 (00:44→19:10)
[2020-10-03] MEDS: INSULIN REGULAR, HUMAN 100 UNITS/ML, 10 ML VIAL (humuLIN R) SUBCUT PRN ×5 (01:32→23:53)
[2020-10-03] MEDS: ASPIRIN 81 MG TABLET(ECOTRIN) PO SCH (08:19)
[2020-10-03] MEDS: amLODIPine BESYLATE 10 MG TABLET PO SCH (08:19)
[2020-10-03] MEDS: FAMOTIDINE PF 20 MG/2 ML VIAL IVP SCH ×2 (08:19→21:19)
[2020-10-03] MEDS: CARVEDILOL 6.25 MG TABLET (COREG) PO SCH ×2 (08:19→21:00)
[2020-10-03 13:51] LABS: BASOPHILS % (AUTO) 0.2 % (0.0-2.0); EOSINOPHILS % (AUTO) 0.1 % (0.0-4.0); HEMATOCRIT 39.3 % (36-54); LYMPHOCYTES # (AUTO) 0.3 K/uL (1.0-5.5); LYMPHOCYTES % (AUTO) 4.4 % (20.5-51.5); MEAN CORPUSCULAR HEMOGLOBIN 23 pg (27-31); MEAN CORPUSCULAR HGB CONC 30 % (32-36); MEAN CORPUSCULAR VOLUME 78 fL (79.0-98.0); MONOCYTES # (AUTO) 0.5 K/uL (0.0-1.0); MONOCYTES % (AUTO) 7.1 % (1.7-9.3); NEUTROPHILS # (AUTO) 6.5 K/uL (1.8-7.7); NEUTROPHILS % (AUTO) 88.2 % (40.0-70.0); PLATELET COUNT (AUTO) 107 K/uL (130-430); RED BLOOD CELL COUNT(AUTO) 5.04 MIL/uL (4.2-6.2); RED CELL DISTRIBUTION WIDTH 19.4 % (9.0-15.0); WHITE BLOOD COUNT (AUTO) 7.4 K/uL (4.8-10.8)
[2020-10-03 13:54] LABS: HEMOGLOBIN 11.6 g/dL (14.0-18.0)
[2020-10-03 13:57] LABS: ANION GAP 5 (5-15); CALCIUM 8.6 mg/dL (8.4-11.0); CREATININE 2.97 mg/dL (0.55-1.30); GLUCOSE 248 mg/dL (70-99)
[2020-10-03 14:02] LABS: ALANINE AMINOTRANSFERASE 127 U/L (12-78); ALBUMIN 2.1 g/dL (3.4-4.8); ASPARTATE AMINOTRANSFERASE 45 U/L (10-37); TOTAL BILIRUBIN 0.5 mg/dL (0.0-1.0)
[2020-10-03 14:09] LABS: CHLORIDE 125 mmol/L (98-107); SODIUM SERUM 167 mmol/L (136-145); UREA NITROGEN, BLOOD 105 mg/dL (8-21)
[2020-10-03] MEDS: DEXAMETHASONE SOD PHOSPHATE 10 MG/ML VIAL IVP SCH (15:00)
[2020-10-03] MEDS ORDERED: SODIUM POLYSTYRENE SULFONATE 15 GM/60 ML UDBTL NG ONE (16:00)
[2020-10-03 17:27] LABS: PROTHROMBIN TIME 10.5 SECS (9.5-12.5)
[2020-10-03] MEDS: INSULIN GLARGINE 100 UNITS/ML 10 ML VIAL SUBCUT SCH (21:21)
[2020-10-04] VITALS (25 sets, daily range): BP systolic 96–143
[2020-10-04] MEDS: ALBUTEROL MDI INHALATION 8 GM INH INH SCH ×3 (04:00→19:20)
[2020-10-04] MEDS: INSULIN REGULAR, HUMAN 100 UNITS/ML, 10 ML VIAL (humuLIN R) SUBCUT PRN ×3 (05:58→18:41)
[2020-10-04 08:16] LABS: BASOPHILS % (AUTO) 0.2 % (0.0-2.0); EOSINOPHILS % (AUTO) 0.1 % (0.0-4.0); HEMATOCRIT 36.6 % (36-54); HEMOGLOBIN 10.6 g/dL (14.0-18.0); LYMPHOCYTES # (AUTO) 0.4 K/uL (1.0-5.5); LYMPHOCYTES % (AUTO) 9.5 % (20.5-51.5); MEAN CORPUSCULAR HEMOGLOBIN 23 pg (27-31); MEAN CORPUSCULAR HGB CONC 29 % (32-36); MEAN CORPUSCULAR VOLUME 78 fL (79.0-98.0); MONOCYTES # (AUTO) 0.2 K/uL (0.0-1.0); MONOCYTES % (AUTO) 5.4 % (1.7-9.3); NEUTROPHILS # (AUTO) 3.4 K/uL (1.8-7.7); NEUTROPHILS % (AUTO) 84.8 % (40.0-70.0); PLATELET COUNT (AUTO) 75 K/uL (130-430); RED BLOOD CELL COUNT(AUTO) 4.68 MIL/uL (4.2-6.2)
[2020-10-04 08:24] LABS: RED CELL DISTRIBUTION WIDTH 19.1 % (9.0-15.0)
[2020-10-04 08:26] LABS: ALANINE AMINOTRANSFERASE 115 U/L (12-78); ALBUMIN 1.7 g/dL (3.4-4.8); ANION GAP 5 (5-15); ASPARTATE AMINOTRANSFERASE 76 U/L (10-37); CALCIUM 8.2 mg/dL (8.4-11.0); CREATININE 2.87 mg/dL (0.55-1.30); GLUCOSE 390 mg/dL (70-99); POTASSIUM 4.7 mmol/L (3.5-5.1); TOTAL BILIRUBIN 0.6 mg/dL (0.0-1.0)
[2020-10-04] MEDS ORDERED: NS 500 ML IV ONE (08:30)
[2020-10-04 08:56] LABS: CHLORIDE 125 mmol/L (98-107); SODIUM SERUM 168 mmol/L (136-145)
[2020-10-04 08:57] LABS: UREA NITROGEN, BLOOD 108 mg/dL (8-21)
[2020-10-04] MEDS: FAMOTIDINE PF 20 MG/2 ML VIAL IVP SCH ×2 (09:00→21:39)
[2020-10-04] MEDS: CARVEDILOL 6.25 MG TABLET (COREG) PO SCH ×2 (09:00→21:00)
[2020-10-04] MEDS: ASPIRIN 81 MG TABLET(ECOTRIN) PO SCH (09:00)
[2020-10-04] MEDS: amLODIPine BESYLATE 10 MG TABLET PO SCH (09:00)
[2020-10-04] MEDS: DEXAMETHASONE SOD PHOSPHATE 10 MG/ML VIAL IVP SCH (15:00)
[2020-10-04] MEDS: INSULIN GLARGINE 100 UNITS/ML 10 ML VIAL SUBCUT SCH (21:39)
[2020-10-05] VITALS (27 sets, daily range): BP systolic 92–117
[2020-10-05] MEDS: PROPOFOL DRIP 100 ML IV PRN ×2 (00:10→23:00)
[2020-10-05] MEDS: ALBUTEROL MDI INHALATION 8 GM INH INH SCH ×4 (02:46→19:50)
[2020-10-05] MEDS: INSULIN REGULAR, HUMAN 100 UNITS/ML, 10 ML VIAL (humuLIN R) SUBCUT PRN ×4 (05:25→23:21)
[2020-10-05] MEDS: FAMOTIDINE PF 20 MG/2 ML VIAL IVP SCH ×2 (10:15→21:00)
[2020-10-05] MEDS: CARVEDILOL 6.25 MG TABLET (COREG) PO SCH ×2 (10:15→21:00)
[2020-10-05] MEDS: amLODIPine BESYLATE 10 MG TABLET PO SCH (10:17)
[2020-10-05] MEDS: ASPIRIN 81 MG TABLET(ECOTRIN) PO SCH (10:17)
[2020-10-05 11:37] LABS: ANION GAP 9 (5-15); CALCIUM 7.7 mg/dL (8.4-11.0); CREATININE 5.04 mg/dL (0.55-1.30); GLUCOSE 316 mg/dL (70-99); POTASSIUM 5.3 mmol/L (3.5-5.1)
[2020-10-05 11:43] LABS: ALANINE AMINOTRANSFERASE 96 U/L (12-78); ALBUMIN 1.6 g/dL (3.4-4.8); TOTAL BILIRUBIN 0.8 mg/dL (0.0-1.0)
[2020-10-05 12:10] LABS: CHLORIDE 127 mmol/L (98-107); SODIUM SERUM 171 mmol/L (136-145); UREA NITROGEN, BLOOD 142 mg/dL (8-21)
[2020-10-05 12:11] LABS: ASPARTATE AMINOTRANSFERASE 118 U/L (10-37)
[2020-10-05] MEDS ORDERED: DESMOPRESSIN ACETATE 4 MCG/ML AMP IVP ONE (13:00)
[2020-10-05] MEDS: DEXAMETHASONE SOD PHOSPHATE 10 MG/ML VIAL IVP SCH (15:03)
[2020-10-05] MEDS ORDERED: D5W 500 ML IV ONE (17:30)
[2020-10-05] MEDS ORDERED: PHENYLEPHRINE HCL 50 MG in NS 245 ML IV PRN (17:30)
[2020-10-05 18:16] LABS: ANION GAP 12 (5-15); CREATININE 6.54 mg/dL (0.55-1.30); GLUCOSE 266 mg/dL (70-99)
[2020-10-05 18:24] LABS: SODIUM SERUM 170 mmol/L (136-145)
[2020-10-05 18:25] LABS: POTASSIUM 6.3 mmol/L (3.5-5.1)
[2020-10-05 18:26] LABS: CHLORIDE 125 mmol/L (98-107); UREA NITROGEN, BLOOD 160 mg/dL (8-21)
[2020-10-05] MEDS ORDERED: MEROPENEM 500 MG in NS 50 ML IV SCH (20:00)
[2020-10-05] MEDS ORDERED: NOREPINEPHRINE 4 MG/4 ML VIAL IV ONE (20:50)
[2020-10-05] MEDS ORDERED: MEROPENEM 500 MG VIAL IV ONE (21:08)
[2020-10-05] MEDS ORDERED: SODIUM POLYSTYRENE SULFONATE 15 GM/60 ML UDBTL PO ONE (21:15)
[2020-10-05] MEDS: INSULIN GLARGINE 100 UNITS/ML 10 ML VIAL SUBCUT SCH (22:03)
[2020-10-05] MEDS: NOREPINEPHRINE BITARTRATE 4 MG in D5W 246 ML IV PRN (22:45)
[2020-10-05 23:45] LABS: ANION GAP 13 (5-15); CALCIUM 7.1 mg/dL (8.4-11.0); CHLORIDE 119 mmol/L (98-107); CREATININE 7.12 mg/dL (0.55-1.30)
[2020-10-05 23:46] LABS: SODIUM SERUM 161 mmol/L (136-145)
[2020-10-05 23:50] LABS: GLUCOSE 476 mg/dL (70-99); POTASSIUM 6.7 mmol/L (3.5-5.1); UREA NITROGEN, BLOOD 167 mg/dL (8-21)
[2020-10-06] VITALS (13 sets, daily range): BP systolic 60–138
[2020-10-06] MEDS ORDERED: SODIUM POLYSTYRENE SULFONATE 15 GM/60 ML UDBTL PO ONE (00:15)
[2020-10-06] MEDS ORDERED: D5W 500 ML IV ONE (00:15)
[2020-10-06] MEDS ORDERED: NOREPINEPHRINE 4 MG/4 ML VIAL IV ONE ×5 (00:15→07:44)
[2020-10-06] MEDS ORDERED: PHENYLEPHRINE HCL 10 MG/ML VIAL (NEOSYNEPHRINE) ONE ×2 (00:16→03:23)
[2020-10-06] MEDS: ALBUTEROL MDI INHALATION 8 GM INH INH SCH ×2 (00:21→10:45)
[2020-10-06] MEDS ORDERED: SODIUM POLYSTYRENE SULFONATE 15 GM/60 ML UDBTL ONE (00:21)
[2020-10-06] MEDS: INSULIN REGULAR, HUMAN 100 UNITS/ML, 10 ML VIAL (humuLIN R) SUBCUT PRN ×2 (00:45→06:39)
[2020-10-06] MEDS: NOREPINEPHRINE BITARTRATE 4 MG in D5W 246 ML IV PRN ×2 (01:00→03:30)
[2020-10-06] MEDS ORDERED: NOREPINEPHRINE BITARTRATE 8 MG in D5W 242 ML IV PRN (01:15)
[2020-10-06] MEDS ORDERED: VASOPRESSIN 100 UNITS in D5W 45 ML IV PRN (01:15)
[2020-10-06] MEDS ORDERED: VASOPRESSIN 20 UNITS/ML VIAL IV ONE (01:20)
[2020-10-06 06:34] LABS: BASOPHILS # (AUTO) 0.1 K/uL (0.0-0.2); BASOPHILS % (AUTO) 1.2 % (0.0-2.0); EOSINOPHILS # (AUTO) 0.1 K/uL (0.0-0.4); EOSINOPHILS % (AUTO) 0.5 % (0.0-4.0); HEMATOCRIT 39.8 % (36-54); HEMOGLOBIN 10.9 g/dL (14.0-18.0); LYMPHOCYTES # (AUTO) 1.8 K/uL (1.0-5.5); LYMPHOCYTES % (AUTO) 15.2 % (20.5-51.5); MEAN CORPUSCULAR HEMOGLOBIN 23 pg (27-31); MEAN CORPUSCULAR HGB CONC 27 % (32-36); MEAN CORPUSCULAR VOLUME 84 fL (79.0-98.0); MONOCYTES # (AUTO) 0.1 K/uL (0.0-1.0); MONOCYTES % (AUTO) 1.1 % (1.7-9.3); NEUTROPHILS # (AUTO) 9.5 K/uL (1.8-7.7); PLATELET COUNT (AUTO) 56 K/uL (130-430); RED BLOOD CELL COUNT(AUTO) 4.73 MIL/uL (4.2-6.2); RED CELL DISTRIBUTION WIDTH 20.7 % (9.0-15.0); WHITE BLOOD COUNT (AUTO) 11.6 K/uL (4.8-10.8)
[2020-10-06] MEDS ORDERED: PHENYLEPHRINE HCL 100 MG in NS 240 ML IV PRN (08:00)
[2020-10-06] MEDS ORDERED: NOREPINEPHRINE BITARTRATE 16 MG in D5W 484 ML IV PRN ×2 (08:36→08:37)
[2020-10-06] MEDS: CARVEDILOL 6.25 MG TABLET (COREG) PO SCH (08:57)
[2020-10-06] MEDS: amLODIPine BESYLATE 10 MG TABLET PO SCH (08:58)
[2020-10-06] MEDS ORDERED: DEXAMETHASONE SOD PHOSPHATE 4 MG/ML VIAL IVP SCH (09:00)
[2020-10-06 11:08] LABS: SODIUM SERUM 154 mmol/L (136-145)
[2020-10-06 11:11] LABS: ANION GAP 19 (5-15); CHLORIDE 113 mmol/L (98-107); POTASSIUM 7.6 mmol/L (3.5-5.1)
[2020-10-06 11:12] LABS: CALCIUM 6.6 mg/dL (8.4-11.0); GLUCOSE 662 mg/dL (70-99); UREA NITROGEN, BLOOD 188 mg/dL (8-21)
[2020-10-06 11:13] LABS: ALBUMIN 1.6 g/dL (3.4-4.8); CREATININE 8.02 mg/dL (0.55-1.30); TOTAL BILIRUBIN 1.6 mg/dL (0.0-1.0)
[2020-10-06 11:17] LABS: ALANINE AMINOTRANSFERASE 4443 U/L (12-78)
[2020-10-06 11:18] LABS: ASPARTATE AMINOTRANSFERASE 15742 U/L (10-37)
== END 2020-10-06 09:49 | disposition expired | DRG 870 ==
LOC: SED 10:21 → STU 14:00 → SIC 09-27 09:32
PROVIDERS: ADMIT Internal Medicine Hospice and Palliative Medicine; ATTEND Internal Medicine Hospice and Palliative Medicine
PROC: XW13325 Transfusion of Convalescent Plasma (Nonautologous) into Peripheral Vein, Percutaneous Approach, New Technology Group 5 (ICD-10-PCS; 2020-09-24)
PROC: 5A09357 Assistance with Respiratory Ventilation, Less than 24 Consecutive Hours, Continuous Positive Airway Pressure (ICD-10-PCS; 2020-09-26)
PROC: 0BH17EZ Insertion of Endotracheal Airway into Trachea, Via Natural or Artificial Opening (ICD-10-PCS; principal; 2020-09-27)
PROC: 5A1955Z Respiratory Ventilation, Greater than 96 Consecutive Hours (ICD-10-PCS; 2020-09-27)
PROC: 5A12012 Performance of Cardiac Output, Single, Manual (ICD-10-PCS; 2020-10-06)
PROC: 5A2204Z Restoration of Cardiac Rhythm, Single (ICD-10-PCS; 2020-10-06)
DX: A41.9 Sepsis, unspecified organism (principal); U07.1 COVID-19; J12.82 Pneumonia due to coronavirus disease 2019; J96.01 Acute respiratory failure with hypoxia; N17.0 Acute kidney failure with tubular necrosis; I24.8 Other forms of acute ischemic heart disease; Z99.11 Dependence on respirator [ventilator] status; E87.0 Hyperosmolality and hypernatremia; G93.40 Encephalopathy, unspecified; E78.00 Pure hypercholesterolemia, unspecified; D64.9 Anemia, unspecified; I25.10 Atherosclerotic heart disease of native coronary artery without angina pectoris; I12.9 Hypertensive chronic kidney disease with stage 1 through stage 4 chronic kidney disease, or unspecified chronic kidney disease; E11.22 Type 2 diabetes mellitus with diabetic chronic kidney disease; E78.5 Hyperlipidemia, unspecified; N18.30 Chronic kidney disease, stage 3 unspecified; I46.9 Cardiac arrest, cause unspecified; Z79.84 Long term (current) use of oral hypoglycemic drugs; Z87.891 Personal history of nicotine dependence; Z79.82 Long term (current) use of aspirin; Z79.899 Other long term (current) drug therapy; I25.2 Old myocardial infarction; Z95.1 Presence of aortocoronary bypass graft; Z90.49 Acquired absence of other specified parts of digestive tract
CPT/HCPCS: 36415; 36430; 36600; 71045; 74018; 80048; 80053; 80061; 81000-TC; 82550-TC; 82728; 82803-TC; 82962; 83036; 83605; 83615-TC; 83735-TC; 83880; 84484; 85025; 85379; 85384-TC; 85610-TC; 85730-TC; 86140; 86886; 86900; 86901; 87040-TC; 87086; 92950; 93005; 93970; 94002; 94003; 94640; 94660; 94760; 96365; 96375; 99291; G0378; J0456; J0696; J1100; J1200; J1644; J1650; J1815; J2185; J2270; J2370; J2597; J2704; J3490; J7030; J7050; J7060; J7612; P9017